=== PATIENT | female | born 1995 | race Caucasian/White ===

== ENCOUNTER → 2019-09-25 | Outpatient (REF) | payer BC, OTHER ==
[2019-09-25 17:56] LABS: INFLUENZA A AMPLIFICATION NEGATIVE (NEGATIVE); INFLUENZA B AMPLIFICATION NEGATIVE (NEGATIVE)
== END ==
LOC: M LAB REF 16:24
PROVIDERS: ATTEND Physician Assistant
DX: J11.1 Influenza due to unidentified influenza virus with other respiratory manifestations (principal)